=== PATIENT | male | born 1940 | race Caucasian/White ===

== ENCOUNTER → 2017-04-10 | Outpatient (CLI) | payer MEDICARE, BC ==
[~2017-04-10] MED LIST: ALLEGRA PO; ASPIRIN PO; CERTAGEN PO; DESYREL50 MG PO; FISH OIL 1,0001 CAP PO; HYDROCHLOROTH12.5 M1 PO; MEGACE ORA400 MG/10 DOB; OSTEO BI-FLEX1 EAC2 PO; PANTOPRAZOLE SO40 MG PO; PRILOSEC PO; SIMVASTATIN40 MG PO; SURMONTIL50 MG PO; ZOCOR PO; [UNRECOGNIZED DRUG - OTHER]
--- NOTE | ~2017-04-10 | CT57 ---
[facility] A Service of [facility] & [facility] RADIOLOGY TEXT RESULTS PATIENT: LOLLY BAUTISTA LOCATION: [facility] : 40 UNIT #: [id number] AGE: [address]: Luca Barakat MD SEX: M ORDER DR: [id number] [facility] [address] [place], [place] [address] [id number] O MR#: [id number] Acc #: [id number] NAME: LOLLY BAUTISTA : 1940 SEX: M STUDY DATE/TIME: 04/10/2017 15:33 UNIT: [facility] ROOM: STUDY DESCRIPTION: CT Chest Wo Cont Attending Physician: Luca Barakat M.D. Referring Physician: Luca Barakat M.D. Ordering Physician: Luca Barakat M.D. Primary Care Physician: Miguel White M.D. MEDICAL IMAGING REPORT This report is preliminary unless electronic signature is present EXAM High-resolution CT chest without contrast 04/10/2017 HISTORY Shortness of breath while climbing stairs with past [id number] years. Hypertension. COPD. COMPARISON High-resolution CT chest 06/07/2015. TECHNIQUE 1.5 mm axial images were obtained at 10 mm through the chest without contrast per high-resolution protocol. Prone imaging performed of the lung bases. Expiratory phase imaging through the arch, medina, bases. 5 mm helical images were performed to account for respiratory motion degradation. This CT exam was performed with one or more of the following radiation dose reduction techniques: automatic exposure control, adjustment of mA and/or kV according to patient size, and iterative reconstruction. FINDINGS Reticular interstitial fibrotic changes are demonstrated peripherally throughout both lungs, greatest in a bibasilar distribution. There does not appear to be significant progression of interstitial fibrosis, however, when compared to the 06/07/2015 examination. No superimposed acute airspace disease is identified. There is very mild cylindrical bronchiectasis in the lung bases, but no evidence of bronchial wall thickening or mucous plugging. 4 mm pleural-based nodule posterior left lower lobe (series 9, image 49) is stable since 06/07/2015, in keeping with benign finding. No new pulmonary nodules are evident. Benign calcified granulomas changes are present in the right hilum and right STS. [facility] A Service of [facility] RADIOLOGY TEXT RESULTS PATIENT: LOLLY BAUTISTA LOCATION: [facility] : 40 UNIT #: [id number] AGE: [address]: Luca Barakat MD SEX: M ORDER DR: lower lobe. No pericardial effusion or pleural effusion. Shotty mediastinal lymph nodes thought to be benign and reactive, and a dominant AP window node measuring 1 cm short axis is stable since 2014. Cholecystectomy changes. Included portions of the upper abdominal organs have a normal noncontrast appearance. No evidence of honeycombing fibrosis. IMPRESSION 1. 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 No significant change from 06/07/2015. Dictated by... Daisy Reyna M.D. THIS IS AN ELECTRONICALLY VERIFIED REPORT Daisy Reyna M.D. at 04/13/2017 8:39 AM JUAN JOSE/leslie TD: 04/11/2017 21:08 JOB #: [id number] MEDICAL IMAGING REPORT Page 1 of 1 COPY
== END | disposition home or self-care (01) ==
LOC: CCAT 14:48
DX: J84.10 Pulmonary fibrosis, unspecified (principal); J44.9 Chronic obstructive pulmonary disease, unspecified; I10 Essential (primary) hypertension
CPT/HCPCS: 71250

== ENCOUNTER 2017-06-29 18:54 | Emergency (ER) | payer MEDICARE, BC ==
[~2017-06-29] VITALS: Ht 177.8 cm; Wt 79.3 kg
--- NOTE | ~2017-06-29 | CR58 ---
[facility] A Service of [facility] & [facility] RADIOLOGY TEXT RESULTS PATIENT: LOLLY BAUTISTA LOCATION: [facility] : 40 UNIT #: [id number] AGE: [address]: Santi Reyes MD SEX: M ORDER DR: [id number] [facility] [address] [place], [place] [address] [id number] E MR#: [id number] Acc #: [id number] NAME: LOLLY BAUTISTA : 1940 SEX: M STUDY DATE/TIME: 06/29/2017 22:10 UNIT: [facility] ROOM: STUDY DESCRIPTION: CR Cervical Spine 2 or 3 Views Attending Physician: Santi Reyes M.D. Ordering Physician: Santi Reyes M.D. Primary Care Physician: Miguel White M.D. MEDICAL IMAGING REPORT This report is preliminary unless electronic signature is present EXAM Cervical spine series HISTORY Neck pain after watching the eclipse 5 days ago. TECHNIQUE 3 views of the cervical spine were obtained. FINDINGS There are moderate degenerative changes at all cervical levels. Disc space narrowing and osteophyte formation is seen to a moderate degree at C2-3, C3-C4 and to a more advanced degree at C4-5, C5-6 and C6-7. Alignment is satisfactory. Posterior facet degenerative changes are also seen to a moderate degree with more advanced facet arthropathy on the right at C3-4. No prevertebral soft tissue swelling is seen. No acute fractures are noted. IMPRESSION Advanced degenerative disc disease C4-C6. Moderate degenerative changes at the other cervical levels. Advanced facet arthropathy C3-4 on the right with moderate midcervical facet disease elsewhere. No acute bony abnormalities are seen. Dictated by... Gerardo De La Rosa M.D. THIS IS AN ELECTRONICALLY VERIFIED REPORT Gerardo De La Rosa M.D. at 07/02/2017 7:14 AM NESSAF/olya TD: 07/01/2017 01:07 JOB #: [id number] STS. [facility] A Service of [facility] & [facility] RADIOLOGY TEXT RESULTS PATIENT: LOLLY BAUTISTA LOCATION: [facility] #: [id number] : 40 UNIT #: [id number] AGE: [address]: Santi Reyes MD SEX: M ORDER DR: MEDICAL IMAGING REPORT Page 1 of 1 COPY
== END 2017-06-29 22:45 | disposition home or self-care (01) ==
LOC: CED 18:54
DX: S16.1XXA Strain of muscle, fascia and tendon at neck level, initial encounter (principal); K21.9 Gastro-esophageal reflux disease without esophagitis; F32.9 Major depressive disorder, single episode, unspecified; Z87.891 Personal history of nicotine dependence; Z79.899 Other long term (current) drug therapy; Z88.8 Allergy status to other drugs, medicaments and biological substances; X58.XXXA Exposure to other specified factors, initial encounter; Y93.89 Activity, other specified
CPT/HCPCS: 72040; 99283